=== PATIENT | female | born 1990 | race African-American/Black ===

== ENCOUNTER 2024-05-01 06:27 | Observation (INO) | payer BC ==
[2024-04-29 13:06] VITALS: BMI 44.2
[2024-04-29 14:09] LABS: BHCG - Serum Negative (NEGATIVE); Pregs Control Background? CLEAR/WHITE (CLR/WHITE); Pregs Control Bar Appear? YES (CONTROL BAR)
[2024-04-29 14:11] LABS: Hematocrit 42.1 % (34.9-44.5); Hemoglobin 13.4 g/dL (12.0-15.5); Mean Corpuscular HGB CONC 31.8 g/dL (32.0-36.0); Mean Corpuscular Hemoglobin 27.3 pg (27.0-33.0); Mean Corpuscular Volume 85.7 fL (81.6-98.3); Mean Platelet Volume 10.2 fL (7.4-10.4); Platelet Count 433 10x3/uL (150-450); RBC Distribution Width 13.7 % (11.5-14.5); Red Blood Cell (RBC) Count 4.91 10x6/uL (3.90-5.03); White Blood Cell (WBC) Count 9.1 10x3/uL (3.5-10.5)
[2024-05-01] MEDS ORDERED: CeleCOXIB 100 MG CAP ONE (07:54)
[2024-05-01] MEDS ORDERED: Gabapentin 300 MG CAP ONE (07:54)
[2024-05-01] MEDS ORDERED: Famotidine/PF 20 mg/2ml Vial ONE (07:55)
[2024-05-01] MEDS ORDERED: Lidocaine 2% PF 5 ML VIAL ONE (08:57)
[2024-05-01] MEDS ORDERED: Bupivacaine HCl 0.5%/Epinephrine 1:200,000/PF 30 ml Vial ONE (08:57)
[2024-05-01] MEDS ORDERED: Ondansetron PF 4 MG/2 ML Vial ONE ×2 (08:58→12:09)
[2024-05-01] MEDS ORDERED: Dexamethasone 4 mg/ml Vial ONE (08:58)
[2024-05-01] MEDS ORDERED: Rocuronium Bromide 10 MG/ML (10ML VIAL) ONE (08:58)
[2024-05-01] MEDS ORDERED: PROPOFOL 20 ML ONE (08:58)
[2024-05-01] MEDS ORDERED: fentaNYL 50 mcg/mL 1 mL Vial ONE ×4 (08:59→12:07)
[2024-05-01] MEDS ORDERED: Lidocaine 4% PF 5 ML AMP ONE (09:01)
[2024-05-01] MEDS ORDERED: CEFAZOLIN 2 GM VIAL ONE (09:12)
[2024-05-01] MEDS ORDERED: Midazolam HCl 2 mg/2 ml Vial ONE (09:12)
[2024-05-01] MEDS ORDERED: Ipratropium/Albuterol 3 ML NEB ONE (09:23)
[2024-05-01] MEDS ORDERED: SUCCINYLCHOLINE/SOD CL,ISO/PF 200 MG/10 ML SYRINGE FS ONE (09:34)
[2024-05-01] MEDS ORDERED: Acetaminophen 325 MG TAB PO PRN (11:28)
[2024-05-01] MEDS ORDERED: diphenhydrAMINE 25 MG CAP PO PRN (11:28)
[2024-05-01] MEDS ORDERED: Bisacodyl 10 MG SUPP PR PRN (11:28)
[2024-05-01] MEDS ORDERED: Promethazine HCl 25 MG/ML VIAL IM PRN (11:28)
[2024-05-01] MEDS ORDERED: Zolpidem Tartrate 5 MG TAB PO PRN (11:28)
[2024-05-01] MEDS ORDERED: Ipratropium/Albuterol 3 ML NEB NEB PRN (11:30)
[2024-05-01] MEDS ORDERED: SUGAMMADEX SODIUM 200 MG/2 ML VIAL ONE (12:54)
[2024-05-01] MEDS ORDERED: fentaNYL 50 mcg/mL 1 mL Vial SLOW IVP PRN (13:46)
[2024-05-01] MEDS: Lactated Ringer's 1,000 ML IV SCH (14:49)
[2024-05-01] MEDS: HYDROcodone/Acetaminophen 5/325 mg Tablet PO PRN (15:02)
[2024-05-01] MEDS: Benzocaine/Menthol 1 LOZ LOZ PO PRN (15:46)
[2024-05-01] MEDS: Ketorolac Tromethamine 30 MG (1 mL) VIAL IVP SCH (18:08)
[2024-05-01] MEDS: Ondansetron PF 4 MG/2 ML Vial IVP PRN (18:13)
[2024-05-02] MEDS: Simethicone Chewable 80 MG TAB PO PRN (00:15)
[2024-05-02] MEDS: HYDROcodone/Acetaminophen 5/325 mg Tablet PO PRN (01:45)
[2024-05-02 05:09] LABS: Hematocrit 34.4 % (34.9-44.5); Hemoglobin 11.4 g/dL (12.0-15.5); Mean Corpuscular HGB CONC 33.1 g/dL (32.0-36.0); Mean Corpuscular Hemoglobin 28.1 pg (27.0-33.0); Mean Corpuscular Volume 84.9 fL (81.6-98.3); Mean Platelet Volume 10.2 fL (7.4-10.4); Platelet Count 360 10x3/uL (150-450); Red Blood Cell (RBC) Count 4.05 10x6/uL (3.90-5.03); White Blood Cell (WBC) Count 14.2 10x3/uL (3.5-10.5)
[2024-05-02 11:43] VITALS: BP 124/65; TEMP 98.3
[2024-05-07] MEDS ORDERED: Ibuprofen 800 MG TAB PO SCH (06:00)
== END 2024-05-02 11:15 | disposition home or self-care (01) ==
LOC: CSHSDC 06:27 → CSHPP 12:25
PROVIDERS: ADMIT Student in an Organized Health Care Education/Training Program; ATTEND Student in an Organized Health Care Education/Training Program
PROC: 0UT94ZZ Resection of Uterus, Percutaneous Endoscopic Approach (ICD-10-PCS; principal; 2024-05-02)
PROC: 0UT74ZZ Resection of Bilateral Fallopian Tubes, Percutaneous Endoscopic Approach (ICD-10-PCS; 2024-05-02)
DX: N80.03 Adenomyosis of the uterus (principal); N72 Inflammatory disease of cervix uteri; N83.8 Other noninflammatory disorders of ovary, fallopian tube and broad ligament; N85.00 Endometrial hyperplasia, unspecified; K21.9 Gastro-esophageal reflux disease without esophagitis; J45.909 Unspecified asthma, uncomplicated; R01.1 Cardiac murmur, unspecified; Z90.49 Acquired absence of other specified parts of digestive tract; Z98.890 Other specified postprocedural states; Z79.899 Other long term (current) drug therapy; Z91.048 Other nonmedicinal substance allergy status
CPT/HCPCS: 36415; 84703; 85027; 86850; 86900; 86901; 88307; 94640; J1100; J1885; J2001; J2250; J2405; J2704; J3010; J3490; J7120; J7620